=== PATIENT | female | born 1970 | race Caucasian/White ===

== ENCOUNTER 2020-01-06 09:32 | Outpatient (CLI) | payer OTHER, SELFPAY ==
--- NOTE | 2020-01-06 | ECG_ITS ---
Measurements Intervals [place] Rate: 100 P: 61 WI: 148 QRS: 37 QRSD: 83 T: 59 QT: 345 QTc: 446 Interpretive Statements SINUS TACHYCARDIA VOLTAGE CRITERIA FOR LVH BORDERLINE ECG Electronically Signed On 01-06-2020 11:45:40 CHIP MIXING MACHINE OPERATOR by Ameya Mosley D.O.
[2020-01-06 10:03] LABS: Hematocrit 41.5 % (37.0-47.0); Hemoglobin 13.7 g/dL (12.0-15.0)
[2020-01-06 10:16] LABS: Albumin Level 4.6 g/dL (3.5-5.1); Estimated Glomerular Filt Rate > 60; Glucose 106 mg/dL (65-105)
[2020-01-06 12:25] LABS: Urine Cotinine NEGATIVE
== END 2020-01-06 09:33 | disposition home or self-care (01) ==
LOC: ANHLAB 09:38
PROVIDERS: Visit Provider Orthopaedic Surgery
DX: Z01.818 Encounter for other preprocedural examination (principal); M17.11 Unilateral primary osteoarthritis, right knee; R94.31 Abnormal electrocardiogram [ECG] [EKG]
CPT/HCPCS: 36415; 80307; 82040; 82565; 82947; 85014; 85018; 93005

== ENCOUNTER 2020-02-08 14:02 | Outpatient (CLI) | payer OTHER, SELFPAY ==
[2020-02-08 15:06] LABS: Basophils Percent Auto 0.5 % (0.2-1.2); Eosinophils Absolute Auto 0.1 K/mm3 (0-0.3); Hematocrit 37.3 % (37.0-47.0); Hemoglobin 12.2 g/dL (12.0-15.0); Immature Granulocyte Absolute 0.05 K/mm3 (0.00-0.031); Immature Granulocyte Percent A 0.6 % (0-0.5); Lymphocytes Absolute Auto 1.24 K/mm3 (0.9-3.2); Lymphocytes Percent Auto 14.4 % (18.3-44.2); Mean Corpuscular HGB Conc 32.7 g/dl (32-36); Mean Corpuscular Hemoglobin 29.5 pg (26-34); Mean Corpuscular Volume 90.1 fl (80-100); Mean Platelet Volume 9.5 fl (7.4-10.4); Monocytes Absolute Auto 0.5 K/mm3 (0.1-0.6); Monocytes Percent Auto 5.6 % (2.6-8.5); Neutrophils Absolute Auto 6.7 K/mm3 (1.3-6.7); Neutrophils Percent Auto 77.9 % (45.5-73.1); Platelet Count Result 362 k/mm3 (150-375); Red Blood Count 4.14 M/mm3 (4.2-5.4); Red Cell Distribution Width 12.3 % (11.5-14.5); White Blood Count 8.6 K/mm3 (4.5-10.0)
== END 2020-02-08 14:03 | disposition home or self-care (01) ==
LOC: ANHSURGERY 14:06
PROVIDERS: PCP Family Medicine; Visit Provider Orthopaedic Surgery
DX: M17.11 Unilateral primary osteoarthritis, right knee (principal)
CPT/HCPCS: 36415; 85025

== ENCOUNTER 2020-04-03 09:51 | Outpatient (CLI) | payer OTHER, SELFPAY ==
[2020-04-03 10:38] LABS: Basophils Percent Auto 0.7 % (0.2-1.2); Eosinophils Absolute Auto 0.1 K/mm3 (0-0.3); Eosinophils Percent Auto 1.5 % (0-4.4); Hematocrit 37.9 % (37.0-47.0); Hemoglobin 12.4 g/dL (12.0-15.0); Immature Granulocyte Absolute 0.02 K/mm3 (0.00-0.031); Immature Granulocyte Percent A 0.3 % (0-0.5); Lymphocytes Absolute Auto 0.93 K/mm3 (0.9-3.2); Lymphocytes Percent Auto 15.4 % (18.3-44.2); Mean Corpuscular HGB Conc 32.7 g/dl (32-36); Mean Corpuscular Hemoglobin 30.6 pg (26-34); Mean Corpuscular Volume 93.6 fl (80-100); Mean Platelet Volume 9.7 fl (7.4-10.4); Monocytes Absolute Auto 0.4 K/mm3 (0.1-0.6); Monocytes Percent Auto 7.3 % (2.6-8.5); Neutrophils Absolute Auto 4.5 K/mm3 (1.3-6.7); Neutrophils Percent Auto 74.8 % (45.5-73.1); Platelet Count Result 320 k/mm3 (150-375); Red Blood Count 4.05 M/mm3 (4.2-5.4); Red Cell Distribution Width 12.5 % (11.5-14.5)
== END 2020-04-03 09:52 | disposition home or self-care (01) ==
LOC: ANHSURGERY 09:57
PROVIDERS: PCP Family Medicine; Visit Provider Orthopaedic Surgery
DX: Z01.810 Encounter for preprocedural cardiovascular examination (principal); M17.11 Unilateral primary osteoarthritis, right knee
CPT/HCPCS: 36415; 85025

== ENCOUNTER 2020-04-08 00:18 | Outpatient (CLI) | payer OTHER, SELFPAY | END 2020-04-08 00:19 | disposition home or self-care (01) | LOC: ANHCOVIDDT 00:18 | PROVIDERS: Visit Provider Orthopaedic Surgery | DX: Z01.812 Encounter for preprocedural laboratory examination (principal); Z20.828 Contact with and (suspected) exposure to other viral communicable diseases | CPT/HCPCS: 87635; C9803; U0003 ==

== ENCOUNTER 2020-04-11 00:38 | Day surgery (SDC) | payer OTHER, SELFPAY ==
[2020-02-08 14:31] VITALS: BP 152/84; PULSE 98; RESP 20; TEMP 37.2; O2SAT 98; BMI 39.4
[2020-04-03 10:05] VITALS: BP 152/94; PULSE 96; RESP 20; TEMP 37; O2SAT 98; BMI 38.9
[2020-04-11] VITALS (15 sets, daily range): BP systolic 108–140; BP diastolic 66–88; PULSE 56–122; RESP 12–20; TEMP 36.3–37.2; O2SAT 93–99
--- NOTE | ~2020-04-11 | XR_ITS ---
EXAMINATION: XR knee RT 2V DATE: 04/11/2020 10:17 INDICATION: Right knee osteoarthritis. Postop. TECHNIQUE: 2 views of right knee were obtained. COMPARISON: Right knee radiographs 04/03/2020 FINDINGS: There is a medial compartment arthroplasty in near-anatomic alignment. No fracture. There i s mild osteoarthritis of lateral compartment and moderate osteoarthritis of patellofemoral compartmen t. There is a small knee joint effusion. There is gas in the soft tissues, consistent with recent miki queenie. IMPRESSION: 1. Medial compartment arthroplasty in near-anatomic alignment. 2. Mild osteoarthritis of lateral compartment and moderate osteoarthritis of patellofemoral compartme nt. 3. Small knee joint effusion. Reviewed, dictated and finalized at location E. IMPRESSION: 1. Medial compartment arthroplasty in near-anatomic alignment. 2. Mild osteoarthritis of lateral compartment and moderate osteoarthritis of pa tellofemoral compartment. 3. Small knee joint effusion.
--- NOTE | 2020-04-11 06:39 | WPDANESEPPF ---
Anes - Initial Pre Proc Eval Procedure: Operation Date: 04/11/20 07:30 Proposed Procedures p Right Partial Knee Arthroplasty - Terry Vicente MD Date/Time: 04/11/20 06:39 Surgeon: Terry Vicente MD Pre Op Diagnosis: OA Right Knee Patient Data Age: 49 Gender: F Height: 5 ft 5 in Weight: 106.1 kg Last Vital Signs Temp 37.0 C 04/03/20 10:05 Pulse 96 04/03/20 10:05 Resp 20 04/03/20 10:05 BP 152/94 H 04/03/20 10:05 Pulse Ox 98 04/03/20 10:05 Allergies Allergy/AdvReac Type Severity Reaction Status Date / Time amoxicillin Allergy Unknown Skin Verified 04/03/20 10:04 Reaction ketorolac Allergy Unknown SINUS Unverified 04/03/20 10:04 CHEST CONGESTION Penicillins Allergy Unknown Rash Verified 04/03/20 10:04 Home Medications Medication Instructions Recorded Confirmed Type bupropion HCl 100 mg tablet 100 mg PO DAILY 11/23/19 04/03/20 History texelxg-syxizujat-pyok 3 tablet PO DAILY 11/23/19 04/03/20 History fluoxetine 40 mg capsule 40 mg PO DAILY 11/23/19 04/03/20 History gabapentin 300 mg capsule 300 mg PO BID 11/23/19 04/03/20 History lorazepam 1 mg tablet 1 mg PO DAILY PRN 11/23/19 04/03/20 History multivitamin 1 tablet PO DAILY 11/23/19 04/03/20 History naproxen 500 mg tablet 500 mg PO BID PRN 11/23/19 04/03/20 History ropinirole 8 mg tablet,extended 8 mg PO HS 11/23/19 04/03/20 History release 24 hr cyclobenzaprine 10 mg tablet 10 mg PO BID PRN #30 tablet 03/29/20 04/03/20 Rx Patient hx anesthesia problems: none Family hx anesthesia problems: none PMFSH Past Medical History Medical History Acid reflux Anemia Anxiety Arthritis Depression Osteoarthritis of right knee Restless leg syndrome Surgical History Surgical History History of appendectomy (~08/1989) History of cholecystectomy (~07/2008) History of D&C (~03/2004) History of kidney surgery (~12/2009) History of lithotripsy (~08/2008) History of lithotripsy (~10/2008) History of partial hysterectomy (~08/2018) Family History Family History Father Heart disease Arthritis Mother Breast cancer History of partial knee replacement Grandparent Heart disease Arthritis Social History Social History Years smoked: 7 Smoking status: Former smoker Tobacco type: cigarettes Drinks per week: 6 Anes - Eval Final PreProcedure Day of Procedure 04/11/20 06:39 Patient weight: obese Heart: regular rate and rhythm Lungs: clear to auscultation Airway: Mallampati scale class II Neurological: alert and oriented Last oral intake: >/= 8 hours ASA classification: III Emergent: no Anesthetic plan: proceed Anesthesia type and monitoring: general LMA and standard monitoring Informed Consent: The patient's anesthetic plan and its attendant risks and benefits were discussed with the patient/family/POA. Questions were solicited and answers provided to the satisfaction of the patient/family/POA.
--- NOTE | 2020-04-11 07:18 | WPDHPUPDATE1 ---
History and Physical Update Update Date/Time: 04/11/20 07:18 History and Physical has been reviewed, including an updated exam of the patient. There are NO changes in the patient's condition. Risks, benefits, and alternatives have been discussed and questions answered. Patient agrees to proceed with procedure.
[2020-04-11] MEDS: ceFAZolin 2 GM/D5W 50 ML 2 GM/50 ML BAG IVPB ×2 (07:33→17:19)
[2020-04-11] MEDS: TRANEXAMIC ACID 1,000MG/ISO100 1,000 MG/100 ML BAG 200 MG IVPB (07:35)
[2020-04-11] MEDS: GENTAMICIN BONE CEMENT REFOBACIN 1 EACH TOPICAL (08:15)
[2020-04-11] MEDS: LACTATED RINGERS 1,000 ML 30 ML IV CONT ×2 (09:49)
--- NOTE | 2020-04-11 10:17 | P.OP_ITS ---
Procedure Note - Detailed Date of procedure: 04/11/20 Pre-op diagnosis: OA Right Knee Post-op diagnosis: same Procedure performed: Partial knee arthroplasty, medial compartment. Description of procedure: Excellent bone quality observed. The anterior cruciate ligament was intact. Significant medial osteophytes were resected. Small osteophytes on the patella were resected. Grade 2 chondromalacia in the trochlea. Loose body in the intercondylar notch was removed. Implants: [employer] PKR X3 system tibial insert size #3, 9 mm thickness, femoral component size 3. Tibial base tibial base plate size 3. Anesthesia: GETA and regional (subsartorial block.) Surgeon: Terry Vicente MD Estimated blood loss (mL): 50 Drains: No Complications: None Findings: Operative details: The patient was given a general anesthetic. Preoperative antibiotics were given. The knee was prepped and draped in the usual sterile fashion. A longitudinal incision was created along the medial aspect of the pa tellar tendon. A minimally invasive optimized mid vastus approach was completed. No medial release was taken. The external alignment guide was used to cut the tibia with anatomic posterior slope. A 4 millimeter resection was taken. The spacer block technique was utilized to measure flexion and extension gaps after the osteophytes were removed. The difference was used to calculate the distal r esection. The distal cutting block was utilized to cut the distal femur. The AP and chamfer block was utilized for this last cuts. The femur and tibia were sized. Range of motion and gap balancing was assessed. This was tested with the 1.5 millimeter spacer. The bony surfaces were cleaned with lavaged. Lug holes were drilled. The real components were cemented into position. Excess cement was carefully removed. The tourniquet was released. Meticulous hemostasis was maintained. The wound was closed with interrupted 1 Vicryl suture followed by a running 0 Quill suture and 2-0 Quill suture. Steri-Strips are placed in the skin the patient was extubated and brought to recovery room in stable condition. There were no complications.
--- NOTE | 2020-04-11 10:46 | SUR.PHASEI ---
1020 - dr. pride called and aware of pt's heart rate. 120-130 bpm. no orders at this time
--- NOTE | 2020-04-11 11:18 | SUR.PHASEI ---
1110 - called, no answer. left message on pt's status.
--- NOTE | 2020-04-11 12:23 | ADMGEN ---
This patient, Holly Palm, was admitted to 2 Medical Room 259-. Patient/family oriented to hospital policies and general routines including ID bracelet, bed and alarms, visiting hours, pain management, procedures, bathroom and other care routines, personal items, smoking policy, room service/diet, and visiting hours. Valuables list has been completed. Information on how to activate the Rapid Response Team has been discussed. Patient/Family are encouraged to report perceived risks to care and to ask questions if they do not understand what they are told or what they should do.
[2020-04-11] MEDS: MULTIVITAMINS THERAPEUTIC TAB (*BKC) 1 TABLET PO (14:57)
[2020-04-11] MEDS: ASPIRIN 81 MG ENTERIC TABLET PO (17:15)
[2020-04-11] MEDS: GABAPENTIN 300 MG CAPSULE PO (21:07)
[2020-04-11] MEDS: DOCUSATE SODIUM 100 MG CAPSULE PO (21:07)
[2020-04-12] VITALS: BP 132/73; PULSE 99; RESP 20; TEMP 36.6; O2SAT 97
[2020-04-12] MEDS: ceFAZolin 2 GM/D5W 50 ML 2 GM/50 ML BAG IVPB ×2 (00:11→09:22)
[2020-04-12 04:00] VITALS: BP 140/76; PULSE 92; RESP 20; TEMP 36.7; O2SAT 98
[2020-04-12 05:00] VITALS: BMI 42.8
[2020-04-12] MEDS: NAPROXEN 500 MG TABLET PO (06:37)
--- NOTE | 2020-04-12 08:56 | WPDANESPN ---
Anes - Prog Note Post-Op Date/Time: 04/12/20 08:56 Cardiovascular status: normal Respiratory status: normal Airway patency: baseline Mental status: baseline Post-Op hydration status: normal Vital Signs: Last Vital Signs Temp 36.7 C 04/12/20 04:00 Pulse 92 04/12/20 04:00 Resp 20 04/12/20 04:00 BP 140/76 04/12/20 04:00 Pulse Ox 98 04/12/20 04:00 I/O: Intake & Output 04/11/20 04/12/20 04/12/20 23:59 07:59 15:59 Intake Total 390 1250 Output Total 300 Balance 390 950 Post-procedural complaints: none Patient Feedback: Patient satisfied with anesthetic care.
[2020-04-12] MEDS: ASPIRIN 81 MG ENTERIC TABLET PO (09:22)
[2020-04-12] MEDS: buPROPion HCL 100 MG TABLET PO (09:22)
[2020-04-12] MEDS: FLUOXETINE HCL 20 MG CAP 40 MG PO (09:23)
[2020-04-12] MEDS: GABAPENTIN 300 MG CAPSULE PO (09:23)
[2020-04-12] MEDS: DOCUSATE SODIUM 100 MG CAPSULE PO (09:23)
[2020-04-12] MEDS: MULTIVITAMINS THERAPEUTIC TAB (*BKC) 1 TABLET PO (09:23)
[2020-04-12 10:00] VITALS: BP 116/64; PULSE 99; RESP 17; TEMP 36.6; O2SAT 94
[2020-04-12 10:25] VITALS: O2SAT 94
--- NOTE | 2020-04-12 13:04 | PM.DS ---
DS: Admitting Diagnosis Admitting Diagnosis Admitting Diagnosis: Unilateral primary osteoarthritis, right knee DS: Discharge Diagnosis Discharge Diagnosis (1) Status post right partial knee replacement: Code(s): Z96.651 - Presence of right artificial knee joint Status: Acute DS: Summary Hospital Course Reason for hospitalization: Partial knee arthroplasty. Hospital Course: Tolerated surgery well. Progressed appropriately with therapy. Status at Discharge Functional status at discharge: uses cane/walker Time Spent with Patient Time attestation: Total time spent providing and/or coordinating discharge services: Exam Const: General: no acute distress Resp: Effort & Inspection: normal respiratory effort Skin: Other: Wound healing well. Mepilex dressing intact. No hematoma or drainage. Neuro: Motor exam (neuro): 5/5 motor strength present throughout Sensory Exam: normal sensation Psych: Mental Status: mental status grossly normal Speech and movement: Normal speech and movement present Discharge Plan Discharge Patient Disposition: Home, Self-Care Discharge Instructions: See instruction sheet. Patient Instructions: Antibiotic Form, Joint Replacement Surgery (DC), Knee Replacement (DC) Follow-up/Referrals: Terry Vicente MD [Physician] - Discharge Medications: New aspirin 81 mg Tablet,Delayed Release (Dr/Ec) 81 mg PO BID 14 Days Qty: 28 RF: 0 oxycodone-acetaminophen 5-325 mg tablet 1 - 2 tablet PO Q4-6H MDD 8 tablets PRN (Reason: pain) Qty: 40 RF: 0 Continued bupropion HCl 100 mg tablet 100 mg PO DAILY RF: 0 zzlpduh-yorrimxrw-egqo Tablet 3 tablet PO DAILY RF: 0 fluoxetine 40 mg capsule 40 mg PO DAILY RF: 0 gabapentin 300 mg capsule 300 mg PO BID RF: 0 lorazepam 1 mg tablet 1 mg PO DAILY PRN (Reason: Anxiety) RF: 0 multivitamin [Multiple Vitamins] Tablet 1 tablet PO DAILY RF: 0 naproxen 500 mg tablet 500 mg PO BID PRN (Reason: Pain) RF: 0 ropinirole 8 mg tablet extended release 24 hr 8 mg PO HS RF: 0 cyclobenzaprine 10 mg tablet 10 mg PO BID PRN (Reason: muscle spasm) Qty: 30 RF: 0 Quality VTE Prophylaxis VTE prophylaxis: mechanical ordered (MELISSA hose and SCDs)
[2020-04-12 14:00] VITALS: BP 119/66; PULSE 99; RESP 15; TEMP 37; O2SAT 96
== END 2020-04-12 16:01 | disposition home or self-care (01) ==
LOC: ANHSURGERY 10:09 → ANH2MED 11:28
PROVIDERS: Visit Provider Orthopaedic Surgery
PROC: (CPT 27446; principal; 2020-04-11 07:30)
DX: M17.11 Unilateral primary osteoarthritis, right knee (principal); D64.9 Anemia, unspecified; F41.8 Other specified anxiety disorders; K21.9 Gastro-esophageal reflux disease without esophagitis; G25.81 Restless legs syndrome; Z87.891 Personal history of nicotine dependence; E66.01 Morbid (severe) obesity due to excess calories; Z68.41 Body mass index [BMI] 40.0-44.9, adult
CPT/HCPCS: 27446; 73560; 97110; 97116; 97162; 97165; 97530; A9270; C1713; C1776; J0131; J0171; J0690; J1100; J1170; J1885; J2001; J2250; J2270; J2405; J2704; J2795; J3010; J7120